=== PATIENT | female | born 1985 | race American Indian/Alaskan Native ===

== ENCOUNTER 2018-01-19 03:04 | Emergency (ER) | payer SELFPAY ==
[2018-01-19 03:09] VITALS: BP 115/61
[2018-01-19] MEDS ORDERED: MOTRIN PO ONE (04:16)
--- NOTE | 2018-01-19 04:28 | Emergency Department Report ---
ED ENT HPI - General Chief complaint: Sore Throat Stated complaint: THROAT PAIN Time Seen by Provider: 01/19/18 04:07 Source: patient Mode of arrival: Ambulatory Limitations: No Limitations - History of Present Illness Initial comments: 32-year-old [place] female comes in the emergency room complaining of body aches chills sore throat 2 days. Patient also admits to sneezing. Patient reports that she took Motrin today before. She reports that she felt a little warm but denies any fever. Patient denies any sick contact. Patient reports that she recently here from visiting from [place]. complaint: sore throat -: days(s) (2) Severity scale (0 -10): 10 Quality: aching, sharp Consistency: constant Improves with: none Worsens with: swallowing Associated Symptoms: other (sneezing, body aches). denies: fever, cough - Related Data Previous Rx's Medication Instructions Recorded Last Taken Type Ibuprofen [Motrin 600 MG tab] 600 mg PO Q8H PRN #30 tablet 01/19/18 Unknown Rx Allergies Allergy/AdvReac Type Severity Reaction Status Date / Time No Known Allergies Allergy Unverified 01/19/18 03:11 ED Dental HPI - General Chief complaint: Sore Throat Stated complaint: THROAT PAIN Time Seen by Provider: 01/19/18 04:07 Source: patient Mode of arrival: Ambulatory Limitations: No Limitations - Related Data Previous Rx's Medication Instructions Recorded Last Taken Type Ibuprofen [Motrin 600 MG tab] 600 mg PO Q8H PRN #30 tablet 01/19/18 Unknown Rx Allergies Allergy/AdvReac Type Severity Reaction Status Date / Time No Known Allergies Allergy Unverified 01/19/18 03:11 ED Review of Systems ROS: Stated complaint: THROAT PAIN Other details as noted in HPI Constitutional: chills, other (generalized body aches) ENT: throat pain, other (sneezing) ED Past Medical Hx - Past Medical History Previous Medical History?: Yes Additional medical history: Takes medication for fast heart rate. Not sure of the name. Trying to take care of it naturally. - Surgical History Past Surgical History?: Yes Additional Surgical History: D & C's and blood transfusions - Social History Smoking Status: Current Every Day Smoker - Medications Home Medications: Home Medications Medication Instructions Recorded Confirmed Last Taken Type Ibuprofen [Motrin 600 MG tab] 600 mg PO Q8H PRN #30 tablet 01/19/18 Unknown Rx ED Physical Exam - General Limitations: No Limitations General appearance: alert, in no apparent distress - Head Head exam: Present: atraumatic, normocephalic - Eye Eye exam: Present: EOMI - ENT ENT exam: Present: normal orophraynx, mucous membranes moist - Neck Neck exam: Present: normal inspection - Respiratory Respiratory exam: Present: normal lung sounds bilaterally. Absent: respiratory distress - Cardiovascular Cardiovascular Exam: Present: regular rate, normal rhythm. Absent: systolic murmur, diastolic murmur, rubs, gallop - Neurological Exam Neurological exam: Present: alert, oriented X3 - Psychiatric Psychiatric exam: Present: normal affect, normal mood - Skin Skin exam: Present: warm, dry, intact, normal color. Absent: rash ED Course Vital Signs 01/19/18 01/19/18 03:00 03:17 Temperature 99.1 F 99.1 F Pulse Rate 67 62 Respiratory 18 18 Rate Blood Pressure 115/61 115/61 O2 Sat by Pulse 100 100 Oximetry ED Medical Decision Making - Medical Decision Making Patient has been evaluated by this provider fast track. Ibuprofen given for pain management. Rapid strep has been obtained and sent to lab. Critical care attestation.: If time is entered above; I have spent that time in minutes in the direct care of this critically ill patient, excluding procedure time. ED Disposition Clinical Impression: Sore throat (viral) Disposition: DC-01 TO HOME OR SELFCARE Is pt being admited?: No Does the pt Need Aspirin: No Condition: Stable Instructions: Pharyngitis (ED) Additional Instructions: Your test was negative. Sore throat is most likely due to viral versus allergies. I recommended to take ibuprofen that I have prescribed. An over-the -counter Claritin or Zyrtec for the sneezing and allergies. If her symptoms persist or gets worse follow-up with our [facility] care provider Prescriptions: Ibuprofen [Motrin 600 MG tab] 600 mg PO Q8H PRN #30 tablet PRN Reason: Pain Referrals: PRIMARY CARE, [Primary Care Provider] - 3-5 Days Forms: Work/School Release Form(ED)
== END 2018-01-19 05:15 | disposition home or self-care (01) ==
LOC: ED 03:04
DX: R07.0 Pain in throat (principal); M79.1 Myalgia; R68.83 Chills (without fever); F17.200 Nicotine dependence, unspecified, uncomplicated
CPT/HCPCS: 87116; 87430; 99283